=== PATIENT | male | born 1980 | race Caucasian/White ===

== ENCOUNTER 2023-09-12 23:11 | Emergency (ER) | payer OTHER, SELFPAY ==
[2023-09-12 23:25] VITALS: BP 150/99; PULSE 87; RESP 18; TEMP 37; O2SAT 97
[2023-09-12] MEDS: FLUORESCEIN SOD 1 MG/STRIP EACH EYE (23:35)
[2023-09-12] MEDS: TETRACAINE HCL 0.5% OPHTH SOLN 4 ML BTL 1 DROP EACH EYE (23:36)
--- NOTE | 2023-09-12 23:52 | ED.EYEPROB ---
HPI - Eye Problem General Chief complaint: Eye Problems Stated complaint: something in R eye Source: patient and family History of Present Illness HPI Narrative: 43 years old white male came to the emergency room with possible scratch or foreign body at the right eye. Patient works with flying objects , grinding, , foreign body sensation started early today. Patient keeps rubbing his eye. Related Data Home Medications Medication Instructions Recorded Confirmed No Home Medications 09/12/23 09/12/23 Allergies Allergy/AdvReac Type Severity Reaction Status Date / Time No Known Allergies Allergy Verified 09/12/23 23:37 Review of Systems Review of Systems: All systems reviewed & are unremarkable except as noted in HPI and below Exam Narrative: General appearance: Well-developed, well-nourished Skin: Normal color Head: Normocephalic, nontraumatic Eyes: Clear conjunctiva , right eye exam showed no foreign body of the cornea or somewhere else, or under the upper eyelid. Fluorescent test showed corneal abrasionLike streaks across the center of the pupil ENT: Oropharynx normal, ears normal, nose normal Neurologic: Alert and oriented ?3, INTEGRATION MANAGER is normal as tested, no gross motor deficit Course Vital Signs Vital signs: Vital Signs Temperature 37.0 C 09/12/23 23:25 Pulse Rate 87 09/12/23 23:25 Respiratory Rate 18 09/12/23 23:25 Blood Pressure 150/99 H 09/12/23 23:25 Pulse Oximetry 97 09/12/23 23:25 Oxygen Delivery Room Air 09/12/23 23:25 Temperature 37.0 C 09/12/23 23:25 Pulse Rate 87 09/12/23 23:25 Respiratory Rate 18 09/12/23 23:25 Blood Pressure 150/99 H 09/12/23 23:25 Pulse Oximetry 97 09/12/23 23:25 Oxygen Delivery Room Air 09/12/23 23:25 Procedures FB Removal Eye Foreign Body #1: Foreign Body Removal Date: 09/12/23 Foreign Body Removal Time: 23:57 Time Out performed: Yes (10) Location: eye (R) Topical anesthetic used: tetracaine Foreign body: other ( no foreign body) Evidence of corneal penetration: No Procedure performed under: direct visualization with magnification Post-procedure medication: ophthalmic antibiotic Patient tolerated procedure: well Foreign Body Removal Narrative: no foreign body in Fluorescein test positive for corneal abrasion Critical Care Time Critical Care Time Critical Care Time: No Discharge Plan Discharge Clinical Impression: Corneal abrasion Patient Disposition: Home, Self-Care Condition: Stable Instructions: Corneal Abrasion (ED) Additional Instructions: Return if symptoms are worsening , call your family physician for appointment, take Tylenol as as needed for aches and pain, continue home medications. Prescriptions: New erythromycin 5 mg/gram (0.5 %) ointment 0.5 inch ophthalmic (eye) QID Qty: 1 0RF No Action No Home Medications Follow-up/Referrals: UNKNOWN,DOCTOR [Primary Care Provider] - Stand Alone Forms: Work/School Release IP
[2023-09-12] MEDS: ERYTHROMYCIN OPHTH OINTMENT 3.5 GM TUBE 1 APPLIC EACH EYE (23:54)
== END 2023-09-13 00:04 | disposition home or self-care (01) ==
LOC: CHSED 23:52
PROVIDERS: Emergency Provider Emergency Medicine
DX: S05.01XA Injury of conjunctiva and corneal abrasion without foreign body, right eye, initial encounter (principal); W44.9XXA Unspecified foreign body entering into or through a natural orifice, initial encounter
CPT/HCPCS: 99283; A9270